=== PATIENT | male | born 1985 | race Caucasian/White ===

== ENCOUNTER 2020-02-19 09:19 | Emergency (ER) | payer OTHER ==
[~2020-02-19] VITALS: Ht 193 cm; Wt 77.1 kg
[2020-02-19] MEDS ORDERED: ONDANSETRON HCL INJ 2MG/ML 2ML 2 MG/ML VIAL IV STA (09:53)
[2020-02-19] MEDS ORDERED: SODIUM CHLORIDE 0.9% 1000ML 1,000 ML IV SCH (10:00)
[2020-02-19] MEDS ORDERED: ZOFRAN4 MG PO (10:25)
--- NOTE | 2020-02-19 16:44 | Emergency Department Note ---
History of Present Illnes History of Present Illness Chief Complaint: Abdominal Complaints History of Present Illness This is a 34 year old male who presents with abdominal cramping, nausea vomiting for 48 hours since discontinuing chronic Percocet. The patient states that he normally takes #5 10mg Percocet a day. He stopped taking the oxycodone and attempt to rehabilitate. He's had similar symptoms in the past from opioid withdrawal. He states he's not able to tolerate any PO fluid and has had decreased urine output since not been able to take anything by mouth. Light headed when stands. No numbness, tingling, weakness. Last BM yesterday normal. He denies any suicidal or homicidal ideations. He denies any fever or chills. He denies recent antibiotics. He denies any recent camping or well water. He denies any sick contacts. He denies any cough, loss of taste or smell, any other COVID symptoms. [employer] Required: No Onset (how long ago): day(s) Severity: severe Duration (how long): day(s) Progression: unchanged Chronicity: new Context: Denies recent travel, Denies trauma/injury Relieving factors: none Exacerbating factors: other (stopping opiod) Associated symptoms: Reports nausea/vomiting; Denies fever/chills, Denies shortness of breath, Denies syncope Treatments prior to arrival: none Past Medical/Family History Physician Review I have reviewed the patient's past medical and family history. Any updates have been documented here. Past Medical History Recent Fever: No Clinical Suspicion of Infectio: No New/Unexplained Change in Ment: No Other Medical History: tourettes Other Surgery: nasal surgery Social History Smoking Cessation: Current every day smoker Counseling Performed: No Alcohol Use: Occasional Any Illegal Drug Use: Yes (percociet) Physically hurt or threatened: No Other Any Pre-Existing Lines (PICC,: No Review of Systems Review of Systems Constitutional: Reports malaise; Denies chills, Denies fever EENTM: Reports no symptoms Cardiovascular: Denies chest pain, Denies palpitations, Denies syncope Respiratory: Denies change in phlegm color, Denies chest congestion, Denies cough Gastrointestinal: Reports nausea, Reports vomiting; Denies constipation, Denies diarrhea Genitourinary: Reports other (< UOP); Denies dysuria, Denies frequency Musculoskeletal: Reports no symptoms Neurological: Reports no symptoms Psychological: Denies depressed, Denies emotional problems Endocrine: Reports increased thirst; Denies increased urination Hematological/Lymphatic: Denies easy bleeding, Denies easy bruising Physical Exam Related Data Allergies: Coded Allergies: No Known Allergies (Unverified , 02/19/20) Physical Exam CONSTITUTIONAL Constitutional: Present well-developed, Present well-nourished HENT HENT: Present normocephalic, Present atraumatic, Present mucosae dry; Absent nasal discharge HENT L/R: Present left ext ear normal, Present right ext ear normal EYES Eyes: Reports PERRL, Reports conjunctivae normal NECK Neck: Present ROM normal PULMONARY Pulmonary: Present effort normal, Present breath sounds normal CARDIOVASCULAR Cardiovascular: Present regular rhythm, Present heart sounds normal, Present capillary refill normal, Present normal rate GASTROINTESTINAL Abdominal: Present soft, Present nontender, Present bowel sounds normal GENITOURINARY Genitourinary: Present exam deferred SKIN Skin: Present warm, Present dry MUSCULOSKELETAL NEUROLOGICAL Neurological: Present alert, Present oriented x 3, Present no gross motor or sensory deficits PSYCHOLOGICAL Psychological: Present other (anxious) Results Laboratory Laboratory comments WBC 10.9, HGB 15.3, HCT 47.3, PLT 289, Na 144, K 3.3, CO2 26, CL 108, GLY 152, BUN 12, Cr 0.7. Assessment & Plan Medical Decision Making MDM Differential dx includes, but not limited to: opiod withdrawal, gastroenteritis (bacterial or viral including COVID), parasite, PUD, appendicitis, drug overdose. Given fact symptoms started immediately after stopping opoids suspect this is opoid withdrawal. Told to f/u PCP for elevated glucose and < K. Given instructions for high K diet. Given PCP referral sheet. Given referral sheet for help with opoid recovery. Given prompt return precautions. Reassessment Reassessment Feels better at D/C, no longer lightheaded. Tolerated PO fluid without difficulty. Assessment & Plan Final Impression: (1) Dehydration (2) Volume depletion (3) Hypovolemia (4) OPIOID DEPENDENCE WITH WITHDRAWAL (5) Hyperglycemia (6) Hypokalemia due to excessive gastrointestinal loss of potassium Home Meds Active Scripts Ondansetron Hcl* (ZOFRAN*) 4 Mg Tablet, 4 MG PO Q6H PRN for NAUSEA AND VOMITING, #14 Prov:CAMILA NEWTON MD 02/19/20 Medications in the ED Ondansetron HCl 4 mg NOW STAT IV ; Start 02/19/20 at 09:53; Stop 02/19/20 at 09:54; Status UNV Sodium Chloride 1,000 ml @ 0 mls/hr Q0M IV ; Start 02/19/20 at 10:00; Stop 03/20/20 at 09:59; Status UNV CAMILA NEWTON MD Feb 19, 2020 10:19
== END 2020-02-19 10:34 | disposition home or self-care (01) ==
LOC: FSED 09:56
DX: E86.1 Hypovolemia (principal); F11.23 Opioid dependence with withdrawal; R73.9 Hyperglycemia, unspecified; E87.6 Hypokalemia; F95.2 Tourette's disorder; F17.210 Nicotine dependence, cigarettes, uncomplicated
CPT/HCPCS: 80053; 85025; 96374; 99283; J2405; J7030